=== PATIENT | female | born 1975 | race Caucasian/White ===

== ENCOUNTER 2024-10-02 15:20 | Observation (INO) | payer OTHER ==
--- NOTE | 2024-10-02 18:00 | ED ---
General Adult HPI - General Source: patient, RN notes reviewed Mode of arrival: ambulatory Limitations: no limitations - History of Present Illness Onset/Timin -: days(s) Associated Symptoms: syncope <Arabella Vigilling - Last Filed: 10/02/24 23:47> <Roseanne Lombardi - Last Filed: 10/03/24 08:23> - General Chief complaint: Alcohol Stated complaint: syncope Time Seen by Provider: 10/02/24 15:36 - History of Present Illness Initial comments: This is a 48-year-old female with history of EtOH abuse presenting from [place] for possible seizure. Patient endorses having loss of consciousness and possible seizure while at [place] earlier today. States she felt like she was going to lose consciousness before doing so for about 15 seconds, with her "eyes rolling to the back of her head". Witness denies seeing tonic/clonic movement. Patient states that she was confused for several hours following the event. Denies history of syncopal episodes or seizures. Endorses her last drink of 10 ounces occurred this morning. Patient states her blood pressure was also lower than normal at that time. Denies fever, chills, chest pain, dyspnea, dizziness, abdominal pain, N/V/D. (Jorge Vigil) - Related Data Allergies Allergy/AdvReac Type Severity Reaction Status Date / Time No Known Allergies Allergy Verified 10/02/24 16:10 Review of Systems ROS Other: All systems not noted in ROS Statement are negative. <Jorge Vigil - Last Filed: 10/02/24 23:47> ROS Other: All systems not noted in ROS Statement are negative. <Roseanne Lombardi - Last Filed: 10/03/24 08:23> ROS Statement: Those systems with pertinent positive or pertinent negative responses have been documented in the HPI. Past Medical History Past Medical History: No Reported History Past Surgical History: Orthopedic Surgery Smoking Status: Current every day smoker Past Alcohol Use History: Abuse Past Drug Use History: Marijuana <Jorge Vigil - Last Filed: 10/02/24 23:47> General Exam Limitations: no limitations <Jorge Vigil - Last Filed: 10/02/24 23:47> Course Vital Signs 10/02/24 10/02/24 10/03/24 16:07 22:50 03:22 Temperature 98.4 F 98 F Pulse Rate 130 H 97 98 Respiratory 20 18 16 Rate Blood Pressure 121/83 116/89 101/75 O2 Sat by Pulse 98 97 99 Oximetry Medical Decision Making - Lab Data Result diagrams: 10/02/24 22:41 <YaritzaJorge - Last Filed: 10/02/24 23:47> - Lab Data Result diagrams: 10/02/24 22:41 10/02/24 22:41 <Roseanne Lombardi - Last Filed: 10/03/24 08:23> - Medical Decision Making Was pt. sent in by a medical professional or institution (, PA, WEB MARKETING STRATEGIST, urgent care, hospital, or senior care...) When possible be specific @ -[place] Did you speak to anyone other than the patient for history (EMS, parent, family, police, friend...)? What history was obtained from this source @ -[No] Did you review nursing and triage notes (agree or disagree)? Why? @ -[I reviewed and agree with nursing and triage notes] Were old charts reviewed (outside hosp., previous admission, EMS record, old EKG, old radiological studies, urgent care reports/EKG's, senior care records)? Report findings @ -[No old charts were reviewed] Differential Diagnosis (chest pain, altered mental status, abdominal pain women, abdominal pain men, vaginal bleeding, weakness, fever, dyspnea, syncope, headache, dizziness, GI bleed, back pain, seizure, CVA, palpatations, mental health, musculoskeletal)? @ -Differential Seizure: Recurrent seizure disorder, febrile seizure, alcohol withdrawal, stimulants, meningitis, encephalitis, intercranial hemorrhage, intracranial tumor, stroke, eclampsia, thyrotoxicosis, hypocalcemia, hyponatremia, hypernatremia, hypomagnesemia, psychogenic, this is not meant to be an all-inclusive list. EKG interpreted by me (3pts min.). @ -[As above] X-rays interpreted by me (1pt min.). @ -[None done] CT interpreted by me (1pt min.). @ -[None done] U/S interpreted by me (1pt. min.). @ -[None done] What testing was considered but not performed or refused? (CT, X-rays, U/S, labs)? Why? @ -[None] What meds were considered but not given or refused? Why? @ -[None] Did you discuss the management of the patient with other professionals (professionals i.e. , PA, WEB MARKETING STRATEGIST, lab, RT, psych nurse, social psychologist, lawyer real estate, teacher, chief clinical officer, disease case manager rn)? Give summary @ -[No] Was smoking cessation discussed for >3mins.? @ -[No] Was critical care preformed (if so, how long)? @ -[No] Were there social determinants of health that impacted care today? How? (Homelessness, low income, unemployed, alcoholism, drug addiction, transportation, low edu. Level, literacy, decrease access to med. care, care home, rehab)? @ -[No] Was there de-escalation of care discussed even if they declined (Discuss DNR or withdrawal of care, Hospice)? DNR status @ -[No] What co-morbidities impacted this encounter? (DM, HTN, Smoking, COPD, CAD, Cancer, CVA, ARF, Chemo, Hep., AIDS, mental health diagnosis, sleep apnea, m orbid obesity)? @ -[None] Was patient admitted / discharged? Hospital course, mention meds given and route, prescriptions, significant lab abnormalities, going to OR and other pertinent info. @ -[hospital course] Undiagnosed new problem with uncertain prognosis? @ -[No] Drug Therapy requiring intensive monitoring for toxicity (Heparin, Nitro, Insulin, Cardizem)? @ -[No] Were any procedures done? @ -[No] Diagnosis/symptom? @ -[default] Acute, or Chronic, or Acute on Chronic? @ -Acute Uncomplicated (without systemic symptoms) or Complicated (systemic symptoms)? @ -Complicated Side effects of treatment? @ -[No] Exacerbation, Progression, or Severe Exacerbation? @ -[No] Poses a threat to life or bodily function? How? (Chest pain, USA, MT, pneumonia, PE, COPD, DKA, ARF, appy, cholecystitis, CVA, Diverticulitis, Homicidal, Suicidal, threat to staff... and all critical care pts) @ -[No] (Jorge Vigil) Was patient admitted / discharged? Hospital course, mention meds given and route, prescriptions, significant lab abnormalities, going to OR and other pertinent info. @Admission- Briefly, pt is a 48 y/o female PMH alcoholism presenting from [place] where she had a syncopal episode today while checking in for rehab. Of note, pt had spent 7 hours in the ED prior to being discussed with myself. Pt was discussed with myself at approximately 11:00 PM by DONALDO. At this point labs had not been drawn. RN was contacted, labs were drawn, and vitals were updated. On my assessment pt is awake and alert, in NAD. Obtained further history from patient and . Patient's last drink was this morning about 4 hours prior to her arrival at [place]. While sitting in a chair there, beginning the check in process patient became pale, her eyes rolled back and she lost consciousness. This lasted for about 15 seconds, she did not display any shaking or seizure-like activity. Patient immediately woke up and returned to baseline. She has no history of seizures and alcohol withdrawal seizures. Patient did not hit her head with this episode of syncope. On my assessment she is awake and alert, MM are somewhat dry. She is borderline tachycardic. She has no diaphoresis, does not appear to be responding to internal stimuli, is calm and conversant, no vomiting, notes mild nausea. Discussed with patient and obtaining comprehensive labs, CT brain was obtained and showed no acute process. Will obtain IV access, ordered fluid bolus and 10 mg valium out of concern for impending alcohol withdrawal, indicated by tachycardia and pt's nausea. Labs are significant for mild hyponatremia sodium 130, magnesium 1.5, ordered oral and IV replacement. AST/ALT elevated to 257/59, likely secondary to chronic alcohol abuse. Patient's troponin was elevated 0.047. I reviewed EKG did not show any signs of ST elevations or depressions. Patient states she has noticed mild sharp intermittent chest pain left side of her chest over the last 2 weeks. Current denies chest pain. Discussed with patient that due to syncopal episode elevated troponin she should be admitted for observation to which she was agreeable. CIWA orders placed. Will trend troponin. Aspirin ordered. Patient discussed with CAMILA Kerr who can accept patient for admission. EKG shows sinus tachycardia, rate 122 bpm, intervals within acceptable limits, no significant ST elevations or depressions, no arrhythmia Undiagnosed new problem with uncertain prognosis? @ -No Drug Therapy requiring intensive monitoring for toxicity (Heparin, Nitro, Insulin, Cardizem)? @ -No Were any procedures done? @ -No Diagnosis/symptom? syncope hypomagnesemia, elevated troponin Acute, or Chronic, or Acute on Chronic? @ -Acute Uncomplicated (without systemic symptoms) or Complicated (systemic symptoms)? @ -Complicated Side effects of treatment? @ -No Exacerbation, Progression, or Severe Exacerbation? @ -No Poses a threat to life or bodily function? How? (Chest pain, USA, MT, pneumonia, PE, COPD, DKA, ARF, appy, cholecystitis, CVA, Diverticulitis, Homicidal, Suicidal, threat to staff... and all critical care pts) Potentially (Roseanne Lombardi) - Lab Data Lab Results 10/02/24 10/02/24 10/02/24 Range/Units 22:41 22:41 22:51 WBC 8.01 (4.50-10.00) 10*3/uL RBC 3.54 L (4.10-5.20) 10*6/uL Hgb 14.0 (12.0-15.0) g/dL Hct 37.7 (37.2-46.3) % MCV 106.5 H (80.0-97.0) fL MCH 39.5 H (27.0-32.0) pg MCHC 37.1 H (32.0-37.0) g/dL Plt Count 130 L (140-440) 10*3/uL MPV 10.5 (9.5-12.2) fL Immature Gran % (Auto) 0.4 % Neutrophils % 76.6 % Lymphocytes % 17.5 % Monocytes % 4.2 % Eosinophils % 0.4 % Basophils % 0.9 % Immature Gran # 0.03 (0.00-0.04) 10*3/uL Neutrophils # 6.14 (1.80-7.70) 10*3/uL Lymphocytes # 1.40 (0.90-5.00) 10*3/uL Monocytes # 0.34 (0.20-1.00) 10*3/uL Eosinophils # 0.03 L (0.04-0.35) 10*3/uL Basophils # 0.07 (0.00-0.10) 10*3/uL Manual Slide Review Performed Immature Plt Fraction 6.9 H (1.1-6.1) % Sodium 130 L (137-145) mmol/L Potassium 4.8 (3.5-5.1) mmol/L Chloride 94 L (98-107) mmol/L Carbon Dioxide 23 (22-30) mmol/L Anion Gap 13 mmol/L BUN 3 L (7-17) mg/dL Creatinine 0.30 L (0.52-1.04) mg/dL Est GFR (CKD-EPI)AfAm >90 (>60 ml/min/1.73 sqM) Est GFR (CKD-EPI)NonAf >90 (>60 ml/min/1.73 sqM) Glucose 99 (74-99) mg/dL Calcium 9.1 (8.4-10.2) mg/dL Phosphorus 4.2 (2.5-4.5) mg/dL Magnesium 1.5 L (1.6-2.3) mg/dL Total Bilirubin 2.1 H (0.2-1.3) mg/dL AST 257 H (14-36) U/L ALT 59 H (4-34) U/L Alkaline Phosphatase 291 H (38-126) U/L Troponin I (0.000-0.034) ng/mL Total Protein 7.2 (6.3-8.2) g/dL Albumin 4.3 (3.5-5.0) g/dL HCG, Qual Not Detected Serum Alcohol <10 mg/dL 10/02/24 Range/Units 22:51 WBC (4.50-10.00) 10*3/uL RBC (4.10-5.20) 10*6/uL Hgb (12.0-15.0) g/dL Hct (37.2-46.3) % MCV (80.0-97.0) fL MCH (27.0-32.0) pg MCHC (32.0-37.0) g/dL Plt Count (140-440) 10*3/uL MPV (9.5-12.2) fL Immature Gran % (Auto) % Neutrophils % % Lymphocytes % % Monocytes % % Eosinophils % % Basophils % % Immature Gran # (0.00-0.04) 10*3/uL Neutrophils # (1.80-7.70) 10*3/uL Lymphocytes # (0.90-5.00) 10*3/uL Monocytes # (0.20-1.00) 10*3/uL Eosinophils # (0.04-0.35) 10*3/uL Basophils # (0.00-0.10) 10*3/uL Manual Slide Review Immature Plt Fraction (1.1-6.1) % Sodium (137-145) mmol/L Potassium (3.5-5.1) mmol/L Chloride (98-107) mmol/L Carbon Dioxide (22-30) mmol/L Anion Gap mmol/L BUN (7-17) mg/dL Creatinine (0.52-1.04) mg/dL Est GFR (CKD-EPI)AfAm (>60 ml/min/1.73 sqM) Est GFR (CKD-EPI)NonAf (>60 ml/min/1.73 sqM) Glucose (74-99) mg/dL Calcium (8.4-10.2) mg/dL Phosphorus (2.5-4.5) mg/dL Magnesium (1.6-2.3) mg/dL Total Bilirubin (0.2-1.3) mg/dL AST (14-36) U/L ALT (4-34) U/L Alkaline Phosphatase (38-126) U/L Troponin I 0.047 H* (0.000-0.034) ng/mL Total Protein (6.3-8.2) g/dL Albumin (3.5-5.0) g/dL HCG, Qual Serum Alcohol mg/dL Disposition <Jorge Vigil - Last Filed: 10/02/24 23:47> <Roseanne Lombardi - Last Filed: 10/03/24 08:23> Clinical Impression: Alcohol withdrawal, Syncope, Chest pain Disposition: ADMITTED IP TO THIS HOSP Condition: Stable
--- NOTE | 2024-10-02 21:13 | CT ---
EXAMINATION TYPE: CT brain wo con DATE OF EXAM: 10/02/2024 8:56 PM COMPARISON: None. CLINICAL INDICATION: Female, 48 years old with history of Possible first-time seizure, pt was at [facility] ed heart took 2 gummies having dizziness. +etoh abuse bottle wine daily last drink this am. TECHNIQUE: CT of the brain is performed utilizing 3 mm thick sections through the posterior fossa and 3 mm thick sections through the remaining calvarium. Study is performed within 24 hours of arrival to the hospital. Contrast used: mL of , (none if empty) CT DLP: 1090.1 mGycm, Automated exposure control for dose reduction was used. FINDINGS: No abnormal hyperdensity is present to suggest an acute intracranial hemorrhage. No mass lesion is evident. Temporal lobes appear symmetrical No acute infarcts are evident. Ventricles and sulci are appropriate for the patient age. Paranasal sinuses and mastoid air cells within the [id number] are clear. IMPRESSION: 1. No acute intracranial process. Follow up MRI can be performed as clinically indicated. [facility], , 10/02/2024 9:10 PM
[2024-10-02 22:56] LABS: Basophils # (A) 0.07 10*3/uL (0.00-0.10); Basophils % (A) 0.9 %; Eosinophils # (A) 0.03 10*3/uL (0.04-0.35); Eosinophils % (A) 0.4 %; HCT 37.7 % (37.2-46.3); HGB 14.0 g/dL (12.0-15.0); Immature Platelet Fraction 6.9 % (1.1-6.1); Lymphocytes # (A) 1.40 10*3/uL (0.90-5.00); Lymphocytes % (A) 17.5 %; MCH 39.5 pg (27.0-32.0); MCHC 37.1 g/dL (32.0-37.0); MCV 106.5 fL (80.0-97.0); Monocytes # (A) 0.34 10*3/uL (0.20-1.00); Monocytes % (A) 4.2 %; Neutrophils # (A) 6.14 10*3/uL (1.80-7.70); Neutrophils % (A) 76.6 %; Platelet Count 130 10*3/uL (140-440); RBC 3.54 10*6/uL (4.10-5.20); RDW 14.4 % (11.5-14.5); WBC 8.01 10*3/uL (4.50-10.00)
[2024-10-02 23:14] LABS: ALT 59 U/L (4-34); African American GFR (CKD) >90 (>60 ml/min/1.73 sqM); Anion Gap 13 mmol/L; Blood Urea Nitrogen 3 mg/dL (7-17); Calcium 9.1 mg/dL (8.4-10.2); Carbon Dioxide 23 mmol/L (22-30); Chloride 94 mmol/L (98-107); Glucose 99 mg/dL (74-99); Non-African American GFR(CKD) >90 (>60 ml/min/1.73 sqM); Sodium 130 mmol/L (137-145)
[2024-10-02] MEDS: ONDANSETRON ODT 4 MG TAB PO STA (23:29)
[2024-10-02] MEDS: SODIUM CHLORIDE 0.9% 1,000 ML IV ONE (23:30)
[2024-10-02] MEDS: diazePAM 5 MG TAB PO STA (23:30)
[2024-10-02 23:54] LABS: AST 257 U/L (14-36); Albumin 4.3 g/dL (3.5-5.0); Alkaline Phosphatase 291 U/L (38-126); Magnesium 1.5 mg/dL (1.6-2.3); Potassium 4.8 mmol/L (3.5-5.1); Total Protein 7.2 g/dL (6.3-8.2)
[2024-10-03] MEDS ORDERED: ALPRAZolam 0.25 MG TAB PO PRN (00:40)
[2024-10-03] MEDS ORDERED: IBUPROFEN 400 MG TAB PO PRN (00:40)
[2024-10-03] MEDS ORDERED: NALOXONE 0.4 MG/ML 1 ML VIAL IV PRN (00:40)
[2024-10-03] MEDS ORDERED: LORazepam 0.5 MG TAB PO PRN (00:42)
[2024-10-03] MEDS ORDERED: LORazepam 1 MG/0.5 ML VIAL IV PRN (00:42)
[2024-10-03] MEDS ORDERED: LORazepam 1 MG TAB PO PRN ×4 (00:42)
[2024-10-03] MEDS: SODIUM CHLORIDE 0.9% 1,000 ML IV ONE ×2 (01:08→12:29)
[2024-10-03] MEDS: ASPIRIN 81 MG PO STA (01:09)
[2024-10-03] MEDS: THIAMINE 100 MG/ML 2 ML VIAL IM STA (01:09)
[2024-10-03] MEDS: MAGNESIUM SULFATE-D5W PMX 1 GM in DEXTROSE/WATER 1 100ML.BAG IVPB ONE (01:09)
[2024-10-03] MEDS: MAGNESIUM OXIDE 400 MG TAB PO STA (01:09)
--- NOTE | 2024-10-03 01:13 | XR ---
EXAM: XR Chest, 2 Views CLINICAL HISTORY: ITS.REASON XR Reason: syncope TECHNIQUE: Frontal and lateral views of the chest. COMPARISON: No relevant prior studies available. FINDINGS: Lungs: Unremarkable. No consolidation. Pleural space: Unremarkable. No pneumothorax. Heart: Unremarkable. No cardiomegaly. Mediastinum: Unremarkable. Bones/joints: Unremarkable. IMPRESSION: No consolidation.
[2024-10-03] MEDS: SODIUM CHLORIDE 0.9% 1,000 ML IV SCH (03:18)
[2024-10-03 03:20] LABS: Glucose,Whole Blood 130 mg/dL (70-110)
[2024-10-03 04:22] LABS: Amorphous Sediment,Urine Rare /hpf; Bacteria,Urine Occasional /hpf; Bilirubin,Urine Negative (Negative); Blood,Urine Negative (Negative); Color,Urine Colorless; Glucose,Urine (UA) Negative (Negative); Ketones,Urine Negative (Negative); Leukocyte Esterase,Urine Negative (Negative); Nitrite,Urine Positive (Negative); PH, Urine 6.0 (5.0-8.0); Protein,Urine Negative (Negative); RBC,Urine <1 /hpf (0-5); Specific Gravity,Urine 1.001 (1.001-1.035); Squamous Epithelial Cell,Urine 1 /hpf (0-4); Urobilinogen,Urine <2.0 mg/dL (<2.0); WBC,Urine 2 /hpf (0-5)
[2024-10-03 06:37] LABS: INR 1.1 (<1.2); Partial Thromboplastin Time 25.5 sec (22.0-30.0); Prothrombin Time 12.3 sec (10.0-12.5)
[2024-10-03] MEDS: MULTIVITAMINS, THERA 1 EACH TAB PO SCH (08:59)
[2024-10-03] MEDS: FAMOTIDINE 20 MG TAB PO SCH (08:59)
[2024-10-03] MEDS: CEPHALEXIN 500 MG CAP PO SCH (08:59)
[2024-10-03] MEDS: FOLIC ACID 1 MG TAB PO SCH (08:59)
[2024-10-03] MEDS: HEPARIN SODIUM,PORCINE 5,000 UNIT/ML 1 ML VIAL SQ SCH (09:00)
--- NOTE | 2024-10-03 11:48 | CA ---
Transthoracic Echo Report Name: Shari Suero Age: 48 Gender: F : 1975 Exam Date: 10/03/2024 10:07 Exam Location: [facility] Ht (in): 70 Wt (lb): 125 Ordering Physician: Danna Tay Attending/Referring Phys: [id number], Maggi Mule Operator Elsa Sidhu RDCS Procedure CPT: Indications: Syncope Cardiac Hx: Technical Quality: Good Contrast 1: Total Dose (mL): Contrast 2: Total Dose (mL): MEASUREMENTS (Male / Female) Normal Values 2D ECHO LV Diastolic Diameter PLAX 4.0 cm 4.2 - 5.9 / 3.9 - 5.3 cm LV Systolic Diameter PLAX 2.4 cm IVS Diastolic Thickness 0.9 cm 0.6 - 1.0 / 0.6 - 0.9 cm LVPW Diastolic Thickness 0.9 cm 0.6 - 1.0 / 0.6 - 0.9 cm LV Relative Wall Thickness 0.4 RV Internal Dim ED PLAX 2.7 cm LA Systolic Diameter LX 2.8 cm 3.0 - 4.0 / 2.7 - 3.8 cm LV Diastolic Volume MOD 4C 54.3 cm??? LV Systolic Volume MOD 4C 25.2 cm??? LV Ejection Fraction MOD 4C 53.5 % LV Cardiac Index MOD 4C 1417.8 cm???/min???m??? LV Diastolic Length 4C 7.5 cm LV Systolic Length 4C 5.9 cm LV Diastolic Volume MOD 2C 71.3 cm??? LV Systolic Volume MOD 2C 30.4 cm??? LV Ejection Fraction MOD 2C 57.4 % LV Cardiac Index MOD 2C 1998.1 cm???/min???m??? LV Diastolic Length 2C 8.3 cm LV Systolic Length 2C 6.6 cm M-MODE Aortic Root Diameter MM 3.1 cm LA Systolic Diameter MM 2.0 cm LA Ao Ratio MM 0.6 DOPPLER AV Peak Velocity 112.9 cm/s AV Peak Gradient 5.1 mmHg Mitral E Point Velocity 57.3 cm/s Mitral A Point Velocity 70.2 cm/s Mitral E to A Ratio 0.8 MV Deceleration Time 343.4 ms MV E' Velocity 9.0 cm/s Mitral E to MV E' Ratio 6.3 TR Peak Velocity 203.0 cm/s TR Peak Gradient 16.5 mmHg Right Ventricular Systolic Press 26.5 mmHg FINDINGS Left Ventricle Left ventricular ejection fraction is estimated at 55-60 %. Left ventricular cavity size normal. Left ventricular wall thickness normal. Normal left ventricular wall motion. Right Ventricle Normal right ventricular size. Right ventricular systolic pressure within normal limits. Right Atrium Normal right atrial size. No right atrial thrombus or mass seen. Left Atrium Normal left atrial size. No left atrial thrombus or mass present. Mitral Valve Structurally normal mitral valve. No mitral stenosis, regurgitation or prolapse. Aortic Valve Trileaflet aortic valve. No aortic valve stenosis or regurgitation. Tricuspid Valve Structurally normal tricuspid valve. Mild tricuspid regurgitation. Pulmonic Valve Structurally normal pulmonic valve. Trace to mild pulmonic regurgitation. Pericardium No pericardial effusion. Aorta Normal size aortic root and proximal ascending aorta. CONCLUSIONS Reason syncope Normal LV size and function Normal valves Previewed by: Dr. Maulik Koch MD (Electronically Signed) Final Date: 03 October 2024 11:48
--- NOTE | 2024-10-03 11:54 | P.CRDCN ---
History of Present Illness Consult date: 10/03/24 Reason for Consult (text): Syncope History of present illness: This is a 48-year-old female with no previous cardiac history and does not follo w with a money examiner. She has a past medical history of alcohol abuse and tobacco use and dependence, marijuana use. Patient apparently was at [facility] and was checking in for admission there. Patient was sitting in a chair and all of a sudden felt sweaty and nauseated and passed out. She states she has never had this happen before. She apparently lost consciousness for about 15 seconds. No seizure-like activity. Patient's last alcohol intake was yesterday morning. Patient denies chest pain chest pressure, no shortness of breath. Blood pressure 101/75, heart rate 98, pulse ox 99% on room air. Patient is seen today in the emergency center waiting for a bed on the observation unit. -EKG: Sinus tachycardia with no acute ST-T wave changes. -Chest x-ray: No consolidation. -CT brain: No acute intracranial process. -Laboratory studies: -Home cardiac medications: None. Review Of Systems: At the time of my exam: CONSTITUTIONAL: Denies fever or chills. HEENT: Denies blurred vision, vision changes, or eye pain. Denies hemoptysis CARDIOVASCULAR: Denies chest pain. Denies orthopnea. Denies PND. Denies palpitations RESPIRATORY: Denies shortness of breath. GASTROINTESTINAL: Denies abdominal pain. Denies nausea or vomiting. HEMATOLOGIC: Denies bleeding disorders. GENITOURINARY: Denies any blood in urine. SKIN: Denies puritis. Denies rash. Physical examination: Gen: This is a 48-year-old female in no acute distress. VS: reviewed HEENT: Head is atraumatic, normocephalic. Pupils equal, round. Sclerae is anicteric. NECK: Supple. No JVD. LUNGS: Clear to auscultation. No wheezes or rhonchi. No intercostal retractions. HEART: Regular rate and rhythm. No murmur. ABDOMEN: Soft No tenderness. EXTREMITIES: No pedal edema. No calf tenderness. NEUROLOGICAL: Patient is awake, alert and oriented x3. Assessment: Syncopal episode most likely vasovagal event Alcohol abuse, on CIDC protocol Tobacco use and dependence Plan: Obtain 2-D echocardiogram and Doppler study to assess cardiac structure and function Smoking cessation. Patient will be provided the [place] quit line information at discharge. Alcohol cessation. If echocardiogram is unremarkable, patient is cleared for discharge from cardiology perspective. Further recommendations to follow based upon clinical course Thank you kindly for this consultation. Nurse practitioner note has been reviewed, I agree with documented findings and plan of care. Patient was seen and examined. Past Medical History Past Medical History: No Reported History Past Surgical History: Orthopedic Surgery Smoking Status: Current every day smoker Past Alcohol Use History: Abuse Past Drug Use History: Marijuana Medications and Allergies Home Medications Medication Instructions Recorded Confirmed Type Cephalexin [Keflex] 500 mg PO Q6HR 10/03/24 10/03/24 History Fluconazole 200 mg PO Q3D 10/03/24 10/03/24 History Ondansetron [Ondansetron ODT] 4 mg PO Q8H PRN 10/03/24 10/03/24 History chlordiazePOXIDE HCl [Librium] 25 mg PO TID PRN 10/03/24 10/03/24 History Allergies Allergy/AdvReac Type Severity Reaction Status Date / Time No Known Allergies Allergy Verified 10/02/24 16:10 Physical Exam Vitals: Vital Signs Temp Pulse Resp BP Pulse Ox 10/03/24 03:22 98 F 98 16 101/75 99 10/02/24 22:50 97 18 116/89 97 10/02/24 16:07 98.4 F 130 H 20 121/83 98 Intake and Output 10/02/24 10/03/24 10/03/24 22:59 06:59 14:59 Other: Weight 56.699 kg Results 10/02/24 22:41 10/02/24 22:41 Cardiac Enzymes 10/02/24 10/02/24 10/03/24 Range/Units 22:41 22:51 01:59 AST 257 H (14-36) U/L Troponin I 0.047 H* 0.012 (0.000-0.034) ng/mL 10/03/24 Range/Units 05:34 AST (14-36) U/L Troponin I 0.016 (0.000-0.034) ng/mL Coagulation 10/03/24 Range/Units 05:34 PT 12.3 (10.0-12.5) sec APTT 25.5 (22.0-30.0) sec CBC 10/02/24 Range/Units 22:41 WBC 8.01 (4.50-10.00) 10*3/uL RBC 3.54 L (4.10-5.20) 10*6/uL Hgb 14.0 (12.0-15.0) g/dL Hct 37.7 (37.2-46.3) % Plt Count 130 L (140-440) 10*3/uL Comprehensive Metabolic Panel 10/02/24 Range/Units 22:41 Sodium 130 L (137-145) mmol/L Potassium 4.8 (3.5-5.1) mmol/L Chloride 94 L (98-107) mmol/L Carbon Dioxide 23 (22-30) mmol/L BUN 3 L (7-17) mg/dL Creatinine 0.30 L (0.52-1.04) mg/dL Glucose 99 (74-99) mg/dL Calcium 9.1 (8.4-10.2) mg/dL AST 257 H (14-36) U/L ALT 59 H (4-34) U/L Alkaline Phosphatase 291 H (38-126) U/L Total Protein 7.2 (6.3-8.2) g/dL Albumin 4.3 (3.5-5.0) g/dL Current Medications Generic Name Dose Route Start Last Admin Trade Name Freq PRN Reason Stop Dose Admin Alprazolam 0.25 mg 10/03/24 00:40 Alprazolam 0.25 Mg Tab PO Q6HR PRN Anxiety Cephalexin 500 mg 10/03/24 09:00 Cephalexin 500 Mg Cap PO BID [facility] Protocol Famotidine 20 mg 10/03/24 09:00 Famotidine 20 Mg Tab PO BID RUBY Folic Acid 1 mg 10/03/24 09:00 Folic Acid 1 Mg Tab PO DAILY [facility] Heparin Sodium (Porcine) 5,000 unit 10/03/24 08:00 Heparin Sodium,Porcine 5,000 Unit/Ml 1 Ml Vial SQ Q8HR [facility] Sodium Chloride 1,000 mls @ 75 mls/hr 10/03/24 00:45 10/03/24 03:18 Saline 0.9% IV 75 mls/hr .[id number] RUBY Administration Ibuprofen 400 mg 10/03/24 00:40 Ibuprofen 400 Mg Tab PO Q6HR PRN Mild Pain or Fever > 100.5 Lorazepam 0.5 mg 10/03/24 00:42 Lorazepam 0.5 Mg Tab PO Q4HR PRN [place] 4 To 5 Lorazepam 2 mg 10/03/24 00:42 Lorazepam 1 Mg Tab PO Q2HR PRN [place] 10 or greater Lorazepam 2 mg 10/03/24 00:42 Lorazepam 1 Mg Tab PO Q3HR PRN [place] 8 To 9 Lorazepam 1 mg 10/03/24 00:42 Lorazepam 1 Mg Tab PO Q1HR PRN Alcohol Withdrawal Lorazepam 2 mg 10/03/24 00:42 Lorazepam 1 Mg/0.5 Ml Vial IV Q6HR PRN Seizures Lorazepam 1 mg 10/03/24 00:42 Lorazepam 1 Mg Tab PO Q4HR PRN [place] 6 To 7 Multivitamins 1 each 10/03/24 09:00 Multivitamins, Thera 1 Each Tab PO DAILY [facility] Naloxone HCl 0.2 mg 10/03/24 00:40 Naloxone 0.4 Mg/Ml 1 Ml Vial IV Q2M PRN Opioid Reversal Thiamine HCl 100 mg 10/04/24 09:00 Thiamine 100 Mg Tab PO DAILY [facility] Intake and Output 10/02/24 10/03/24 10/03/24 22:59 06:59 14:59 Other: Weight 56.699 kg 10/02/24 22:41 10/02/24 22:41
--- NOTE | 2024-10-03 12:14 | P.HPIM ---
History of Present Illness Patient pleasant 48-year-old female came in after syncopal episode. Patient is a [place] resident since yesterday. Patient does have alcohol use history drinks about 1 bottle of wine every day last alcohol use was yesterday. Patient was lightheaded all day yesterday received IV fluids. EKG did not show any acute ST-T wave changes patient also had an echocardiogram which did not show any significant abnormality. Patient is presently not having any withdrawals. Patient lightheadedness resolved. Patient was also bit hypotensive and has low sodium. Patient was evaluated by cardiology recommended echocardiogram echocard iogram is normal patient is cleared for discharge from their perspective. Patient is also on Keflex, apparently for urinary tract infection although patient denied any UTI symptoms patient was started on Keflex depending on urinalysis results. REVIEW OF SYSTEMS: All other systems are negative except those mentioned in the HPI PHYSICAL EXAMINATION: GENERAL: The patient is alert and oriented x3, not in any acute distress. Well developed, well nourished. HEENT: Pupils are round and equally reacting to light. EOMI. No scleral icterus. No conjunctival pallor. Normocephalic, atraumatic. No pharyngeal erythema. No thyromegaly. CARDIOVASCULAR: S1 and S2 present. No murmurs, rubs, or gallops. PULMONARY: Chest is clear to auscultation, no wheezing or crackles. ABDOMEN: Soft, nontender, nondistended, normoactive bowel sounds. No palpable organomegaly. MUSCULOSKELETAL: No joint swelling or deformity. EXTREMITIES: No cyanosis, clubbing, or pedal edema. NEUROLOGICAL: Gross neurological examination did not reveal any focal deficits. SKIN: No rashes. Assessment and plan -Syncope secondary to intravascular depletion patient will be given 1 more liter bolus of fluid. Echocardiogram is within normal limits EKG did not show any significant abnormality patient will be discharged today - Alcohol abuse: Patient is in [place] - Alcohol withdrawal patient has not any significant withdrawals with minimal withdrawals can be managed at [place] so patient will be discharged today. - Asymptomatic bacteriuria patient does not have any symptoms of UTI I recommend discontinuing Keflex. -Nicotine use: Counseling was provided Patient will be discharged today back to [place] for continued alcohol abuse treatment Past Medical History Past Medical History: No Reported History Past Surgical History: Orthopedic Surgery Smoking Status: Current every day smoker Past Alcohol Use History: Abuse Past Drug Use History: Marijuana Medications and Allergies Home Medications Medication Instructions Recorded Confirmed Type Cephalexin [Keflex] 500 mg PO Q6HR 10/03/24 10/03/24 History Fluconazole 200 mg PO Q3D 10/03/24 10/03/24 History Multivitamins, Thera [Multivitamin 1 each PO DAILY #30 tab 10/03/24 Rx (formulary)] Ondansetron [Ondansetron ODT] 4 mg PO Q8H PRN 10/03/24 10/03/24 History Thiamine [Vitamin B-1] 100 mg PO DAILY #30 tab 10/03/24 Rx chlordiazePOXIDE HCl [Librium] 25 mg PO TID PRN 10/03/24 10/03/24 History Allergies Allergy/AdvReac Type Severity Reaction Status Date / Time No Known Allergies Allergy Verified 10/02/24 16:10 Physical Exam Vitals: Vital Signs Temp Pulse Resp BP Pulse Ox 10/03/24 08:00 98.2 F 78 16 106/79 99 10/03/24 03:22 98 F 98 16 101/75 99 10/02/24 22:50 97 18 116/89 97 10/02/24 16:07 98.4 F 130 H 20 121/83 98 Intake and Output 10/02/24 10/03/24 10/03/24 22:59 06:59 14:59 Other: Weight 56.699 kg Results CBC & Chem 7: 10/02/24 22:41 10/02/24 22:41 Labs: Abnormal Lab Results - Last 24 Hours (Table) 10/02/24 10/02/24 10/02/24 Range/Units 22:41 22:41 22:51 RBC 3.54 L (4.10-5.20) 10*6/uL MCV 106.5 H (80.0-97.0) fL MCH 39.5 H (27.0-32.0) pg MCHC 37.1 H (32.0-37.0) g/dL Plt Count 130 L (140-440) 10*3/uL Eosinophils # 0.03 L (0.04-0.35) 10*3/uL Immature Plt Fraction 6.9 H (1.1-6.1) % Sodium 130 L (137-145) mmol/L Chloride 94 L (98-107) mmol/L BUN 3 L (7-17) mg/dL Creatinine 0.30 L (0.52-1.04) mg/dL POC Glucose (mg/dL) (70-110) mg/dL Magnesium 1.5 L (1.6-2.3) mg/dL Total Bilirubin 2.1 H (0.2-1.3) mg/dL AST 257 H (14-36) U/L ALT 59 H (4-34) U/L Alkaline Phosphatase 291 H (38-126) U/L Troponin I 0.047 H* (0.000-0.034) ng/mL Urine Nitrite (Negative) Amorphous Sediment (None) /hpf Urine Bacteria (None) /hpf 10/03/24 10/03/24 Range/Units 03:19 03:28 RBC (4.10-5.20) 10*6/uL MCV (80.0-97.0) fL MCH (27.0-32.0) pg MCHC (32.0-37.0) g/dL Plt Count (140-440) 10*3/uL Eosinophils # (0.04-0.35) 10*3/uL Immature Plt Fraction (1.1-6.1) % Sodium (137-145) mmol/L Chloride (98-107) mmol/L BUN (7-17) mg/dL Creatinine (0.52-1.04) mg/dL POC Glucose (mg/dL) 130 H (70-110) mg/dL Magnesium (1.6-2.3) mg/dL Total Bilirubin (0.2-1.3) mg/dL AST (14-36) U/L ALT (4-34) U/L Alkaline Phosphatase (38-126) U/L Troponin I (0.000-0.034) ng/mL Urine Nitrite Positive H (Negative) Amorphous Sediment Rare H (None) /hpf Urine Bacteria Occasional H (None) /hpf
--- NOTE | 2024-10-03 12:16 | P.DS ---
Providers Date of admission: 10/03/24 00:42 Attending physician: Radha Mcleod Consults: 10/03/24 00:40 Consult Physician Urgent Consulting Provider: [facility] Consult Reason/Comments: elevated trop, syncope Do you want consulting provider notified?: Yes, Notify in am Primary care physician: Stated None Hospital Course: Patient pleasant 48-year-old female came in after syncopal episode. Patient is a [place] resident since yesterday. Patient does have alcohol use history drinks about 1 bottle of wine every day last alcohol use was yesterday. Patient was lightheaded all day yesterday received IV fluids. EKG did not show any acute ST-T wave changes patient also had an echocardiogram which did not show any significant abnormality. Patient is presently not having any withdrawals. Patient lightheadedness resolved. Patient was also bit hypotensive and has low sodium. Patient was evaluated by cardiology recommended echocardiogram echocardiogram is normal patient is cleared for discharge from their perspective. Patient is also on Keflex, apparently for urinary tract infection although patient denied any UTI symptoms patient was started on Keflex depending on urinalysis results. REVIEW OF SYSTEMS: All other systems are negative except those mentioned in the HPI PHYSICAL EXAMINATION: GENERAL: The patient is alert and oriented x3, not in any acute distress. Well developed, well nourished. HEENT: Pupils are round and equally reacting to light. EOMI. No scleral icterus. No conjunctival pallor. Normocephalic, atraumatic. No pharyngeal erythema. No thyromegaly. CARDIOVASCULAR: S1 and S2 present. No murmurs, rubs, or gallops. PULMONARY: Chest is clear to auscultation, no wheezing or crackles. ABDOMEN: Soft, nontender, nondistended, normoactive bowel sounds. No palpable organomegaly. MUSCULOSKELETAL: No joint swelling or deformity. EXTREMITIES: No cyanosis, clubbing, or pedal edema. NEUROLOGICAL: Gross neurological examination did not reveal any focal deficits. SKIN: No rashes. Assessment and plan -Syncope secondary to intravascular depletion patient will be given 1 more liter bolus of fluid. Echocardiogram is within normal limits EKG did not show any significant abnormality patient will be discharged today - Alcohol abuse: Patient is in [place] - Alcohol withdrawal patient has not any significant withdrawals with minimal withdrawals can be managed at [place] so patient will be discharged today. - Asymptomatic bacteriuria patient does not have any symptoms of UTI I recommend discontinuing Keflex. -Nicotine use: Counseling was provided Patient will be discharged today back to [place] for continued alcohol abuse treatment Patient Condition at Discharge: Stable Plan - Discharge Summary New Discharge Prescriptions: New Multivitamins, Thera [Multivitamin (formulary)] 1 each PO DAILY #30 tab Thiamine [Vitamin B-1] 100 mg PO DAILY #30 tab Continue Fluconazole 200 mg PO Q3D Cephalexin [Keflex] 500 mg PO Q6HR Ondansetron [Ondansetron ODT] 4 mg PO Q8H PRN PRN Reason: Nausea chlordiazePOXIDE HCl [Librium] 25 mg PO TID PRN PRN Reason: ANXIETY/WITHDRAWLS Discharge Medication List Cephalexin [Keflex] 500 mg PO Q6HR 10/03/24 [History] Fluconazole 200 mg PO Q3D 10/03/24 [History] Multivitamins, Thera [Multivitamin (formulary)] 1 each PO DAILY #30 tab 10/03/24 [Rx] Ondansetron [Ondansetron ODT] 4 mg PO Q8H PRN 10/03/24 [History] Thiamine [Vitamin B-1] 100 mg PO DAILY #30 tab 10/03/24 [Rx] chlordiazePOXIDE HCl [Librium] 25 mg PO TID PRN 10/03/24 [History] Follow up Appointment(s)/Referral(s): None,Stated [Primary Care Provider] - 1-2 days Discharge Disposition: OTHER INSTITUTION NOT DEFINED
[2024-10-03 14:42] VITALS: BP 112/86; PULSE 98; RESP 18; TEMP 98.1
[2024-10-04] MEDS ORDERED: THIAMINE 100 MG TAB PO SCH (09:00)
== END 2024-10-03 15:07 | disposition other institution (70) ==
LOC: EC 15:20 → 6NMEDSUR 10-03 00:42
PROVIDERS: ADMIT Hospitalist; ATTEND Hospitalist
DX: E86.9 Volume depletion, unspecified (principal); F10.20 Alcohol dependence, uncomplicated; E87.1 Hypo-osmolality and hyponatremia; E83.42 Hypomagnesemia; R07.89 Other chest pain; R79.89 Other specified abnormal findings of blood chemistry; R82.71 Bacteriuria; Y90.0 Blood alcohol level of less than 20 mg/100 ml; F17.200 Nicotine dependence, unspecified, uncomplicated; Z71.6 Tobacco abuse counseling
CPT/HCPCS: 96361; 96365; 96372; 96375; 99285; 36415; 93005; 93306; 82552; 80053; 83735; 84100; 84484 ×2; 85025; 85610; 85730; 81001; 84703; 82550; 71046; 70450; G0378; G0480; J1644; J3411; J3360; J3475; 80320